=== PATIENT | male | born 1940 | race Caucasian/White ===

== ENCOUNTER → 2017-12-25 07:50 | Outpatient (CLI) | payer MEDICARE, SELFPAY ==
[2017-12-25 08:34] LABS: PSA,Total- Diagnostic 3.42 ng/mL (0.0-4.0)
== END ==
PROVIDERS: Family Provider Internal Medicine; PCP Internal Medicine; Visit Provider Urology
DX: R97.20 Elevated prostate specific antigen [PSA] (principal)
CPT/HCPCS: 36415; 84153

== ENCOUNTER → 2019-02-12 09:15 | Outpatient (CLI) | payer MEDICARE, SELFPAY ==
[2019-02-12 10:36] LABS: PSA,Total - Annual Screen 4.88 ng/mL (0.00-4.00)
== END ==
PROVIDERS: Family Provider Internal Medicine; PCP Internal Medicine; Referring Provider Nurse Practitioner Adult Health; Visit Provider Nurse Practitioner Adult Health
DX: Z12.5 Encounter for screening for malignant neoplasm of prostate (principal)
CPT/HCPCS: 36415; 84153; G0103

== ENCOUNTER → 2019-02-24 09:34 | Outpatient (CLI) | payer MEDICARE, SELFPAY ==
[2017-07-27 09:50] VITALS: BMI 27.7
== END ==
PROVIDERS: Family Provider Internal Medicine; PCP Internal Medicine; Referring Provider Nurse Practitioner Adult Health; Visit Provider Nurse Practitioner Adult Health
DX: N52.9 Male erectile dysfunction, unspecified (principal); R68.82 Decreased libido
CPT/HCPCS: 36415; 84403

== ENCOUNTER → 2019-02-25 08:01 | Outpatient (CLI) | payer MEDICARE, SELFPAY ==
[2017-07-27 09:50] VITALS: BMI 27.7
[2019-02-25 08:34] LABS: Absolute Lymphocyte Count 1.51 X10^3/uL (0.83-4.51); Absolute Neutrophil Count 2.8 X10^3/uL (2.0-7.7); Basophil# 0.02 X10^3/uL; Basophil% 0.4 % (0-1); Eosinophil# 0.16 X10^3/uL; Eosinophils% 3.1 % (0-5); Hematocrit 41.4 % (40-54); Hemoglobin 13.5 g/dL (13.0-16.5); Lymphocyte # 1.51 X10^3/ul (4.0); Lymphocyte % 29.7 % (19-41); Mean Corp Hgb Conc 32.6 g/dL (32-36); Mean Corpuscular Hgb 32.2 pg (27.0-32.0); Mean Corpuscular Volume 98.8 fL (80-94); Mean Platelet Vol. 9.4 fl (6.2-12.0); Monocyte# 0.57 X10^3/uL; Monocyte% 11.2 % (0-10); NRBC Flagged by Analyzer 0 % (0-5); Neutrophil # 2.81 X10^3/uL (2.7-7.7); Neutrophil % 55.4 % (47-70); Platelet Count 139 K/mm3 (150-450); RBC Distribution Width SD 50.8 fl (35.1-43.9); Red Blood Count 4.19 M/mm3 (4.6-6.2); White Blood Count 5.1 K/mm3 (4.4-11.0)
[2019-02-25 09:12] LABS: Luteinizing Hormone 22.5 mIU/mL; Prolactin 12.4 ng/mL
== END ==
PROVIDERS: Family Provider Internal Medicine; PCP Internal Medicine; Referring Provider Nurse Practitioner Adult Health; Visit Provider Nurse Practitioner Adult Health
DX: N52.9 Male erectile dysfunction, unspecified (principal); R97.20 Elevated prostate specific antigen [PSA]; R68.82 Decreased libido
CPT/HCPCS: 36415; 83002; 84146; 84403; 85025

== ENCOUNTER → 2019-04-08 09:37 | Outpatient (CLI) | payer MEDICARE, SELFPAY ==
[2017-07-27 09:50] VITALS: BMI 27.7
== END ==
PROVIDERS: Family Provider Internal Medicine; PCP Internal Medicine; Referring Provider Nurse Practitioner Adult Health; Visit Provider Nurse Practitioner Adult Health
DX: E29.1 Testicular hypofunction (principal)
CPT/HCPCS: 36415; 84403

== ENCOUNTER → 2019-08-25 15:06 | Outpatient (CLI) | payer MEDICARE, SELFPAY | PROVIDERS: PCP Internal Medicine; Referring Provider Urology; Visit Provider Urology | DX: R97.20 Elevated prostate specific antigen [PSA] (principal) | CPT/HCPCS: 36415; 84153; 84403 ==

== ENCOUNTER → 2020-02-29 08:08 | Outpatient (CLI) | payer MEDICARE, SELFPAY ==
[2017-07-27 09:50] VITALS: BMI 27.7
[2020-02-29 09:06] LABS: PSA,Total- Diagnostic 4.11 ng/mL (0.0-4.0)
== END ==
PROVIDERS: PCP Internal Medicine; Referring Provider Urology; Visit Provider Urology
DX: R97.20 Elevated prostate specific antigen [PSA] (principal)
CPT/HCPCS: 36415; 84153; 84403

== ENCOUNTER → 2020-04-20 10:42 | Outpatient (CLI) | payer MEDICARE, SELFPAY ==
--- NOTE | 2020-04-20 10:55 | MRI_ITS ---
STUDY: MRI RIGHT SHOULDER REASON FOR EXAM: Right shoulder pain, injury as a child. TECHNIQUE: Standardized fat and water weighted pulse sequences were obtained in all 3 orthogonal planes. COMPARISON: None. FINDINGS: There is a full-thickness tear of the supraspinatus tendon (T2 coronal images 9-14) retracted approximately 2 cm. There is mild infraspinatus tendinosis (T2 coronal image 6) without discrete tendon tear. There is mild subscapularis tendinosis (T2 axial images 12-14) without discrete tendon tear. Normal teres minor tendon. There is mild atrophy with mild partial fat replacement of the supraspinatus and infraspinatus muscles (T2 sagittal images 18-22). Normal subscapularis muscle. Normal teres minor muscle. Normal glenohumeral articulation. There is a small subchondral cyst in the superior aspect of the glenoid. There is superior migration of the humeral head secondary to the retracted rotator cuff tear. The intracapsular long biceps tendon is poorly visualized and therefore may be torn. Normal labrum. Normal capsulo- ligamentous complex. There is acromioclavicular arthrosis with undersurface osteophytes of the distal clavicle (T2 sagittal images 16, 17). There is a Type II morphology (curved), with a neutral orientation. There is a small volume of subacromial-subdeltoid bursal fluid. Normal visualized coracohumeral and coracoacromial ligaments. Normal deltoid muscle. Normal trapezius muscle. MRI/Upper Ext Joint Only(Routine) IMPRESSION: Full-thickness tear of the supraspinatus tendon. Mild infraspinatus and subscapularis tendinosis. Mild atrophy of the supraspinatus and infraspinatus muscles. Poor visualization of the intracapsular long biceps tendon and therefore may be torn. Acromioclavicular arthrosis. Small volume of subacromial-subdeltoid bursal fluid. Electronically Signed: Jc Gonzalez MD at 12:40 EDT Tel , Service support ,
== END ==
PROVIDERS: PCP Internal Medicine; Referring Provider Orthopaedic Surgery; Visit Provider Orthopaedic Surgery
DX: M19.011 Primary osteoarthritis, right shoulder (principal); M75.121 Complete rotator cuff tear or rupture of right shoulder, not specified as traumatic
CPT/HCPCS: 73221

== ENCOUNTER → 2020-05-11 | Outpatient (CLI) | payer MEDICARE, SELFPAY ==
[2017-07-27 09:50] VITALS: BMI 27.7
[2020-05-11 11:23] LABS: Absolute Lymphocyte Count 1.59 X10^3/uL (0.83-4.51); Absolute Neutrophil Count 2.8 X10^3/uL (2.0-7.7); Basophil# 0.03 X10^3/uL; Basophil% 0.6 % (0-1); Eosinophil# 0.06 X10^3/uL; Eosinophils% 1.2 % (0-5); Hematocrit 46.2 % (40-54); Hemoglobin 14.8 g/dL (13.0-16.5); Lymphocyte # 1.59 X10^3/ul (4.0); Lymphocyte % 31.5 % (19-41); Mean Corpuscular Hgb 31.4 pg (27.0-32.0); Mean Corpuscular Volume 97.9 fL (80-94); Mean Platelet Vol. 9.7 fl (6.2-12.0); Monocyte# 0.57 X10^3/uL; Monocyte% 11.3 % (0-10); NRBC Flagged by Analyzer 0 % (0-5); Neutrophil # 2.79 X10^3/uL (2.7-7.7); Neutrophil % 55.2 % (47-70); Platelet Count 147 K/mm3 (150-450); RBC Distribution Width CV 13.2 % (11.6-14.6); RBC Distribution Width SD 49.2 fl (35.1-43.9); Red Blood Count 4.72 M/mm3 (4.6-6.2); White Blood Count 5.1 K/mm3 (4.4-11.0)
[2020-05-11 11:45] LABS: Anion Gap 4 (5-15); BUN 26 mg/dL (7-18); BUN/Creat Ratio 25.7 RATIO (10-20); Calcium,Total 9.1 mg/dL (8.5-10.1); Chloride 108 mmol/L (98-107); Creatinine, Serum 1.01 mg/dL (0.70-1.30); EST Glomerular Filtration Rate 76 mL/min (>60); Est Glom Filt Rate - Afr Amer 92 mL/min (>60); Glucose 95 mg/dL (74-106); Potassium 4.3 mmol/L (3.5-5.1); Sodium Level 138 mmol/L (136-145)
== END | disposition home or self-care (01) ==
LOC: LAB 11:07
PROVIDERS: Registered Nurse; PCP Internal Medicine; Referring Provider Orthopaedic Surgery; Visit Provider Orthopaedic Surgery
DX: Z01.818 Encounter for other preprocedural examination (principal)
CPT/HCPCS: 36415; 80048; 85025

== ENCOUNTER → 2020-05-23 09:05 | Outpatient (CLI) | payer MEDICARE, SELFPAY | PROVIDERS: PCP Internal Medicine; Referring Provider Registered Nurse; Visit Provider Registered Nurse | DX: Z20.828 Contact with and (suspected) exposure to other viral communicable diseases (principal) | CPT/HCPCS: 87635; C9803; U0003 ==

== ENCOUNTER → 2020-10-05 13:26 | Outpatient (CLI) | payer MEDICARE, SELFPAY ==
--- NOTE | 2020-10-05 13:31 | CT_ITS ---
STUDY: CT BRAIN WITHOUT CONTRAST REASON FOR EXAM: Male, 79 years old. MEMORY IMPAIRMENT RADIATION DOSAGE (If Supplied By Facility): CTDIvol = ( 44.99 ) mGy, DLP = ( 745.49 ) mGycm TECHNIQUE: Transaxial CT imaging of the brain was performed without administration of intravenous contrast material. Individualized dose optimization techniques were used for this CT. COMPARISON: No relevant priors. FINDINGS: Normal soft tissue structures. Normal calvarium. There is mild cerebral atrophy with widening of the extra-axial spaces and ventricular dilatation. There are areas of decreased attenuation within the white matter tracts of the supratentorial brain, consistent with microvascular disease changes. Tiny old lacunar infarcts in the insular cortex of the left temporal lobe. Normal brainstem. There is mild cerebellar atrophy. There is no intracranial hemorrhage. There are no findings of an acute ischemic infarction. Normal visualized paranasal sinuses. CT/Brain/Head without Contrast IMPRESSION: Chronic involutional changes of the brain. Electronically Signed: Brent Perales MD at 15:14 EST , Service support ,
== END ==
PROVIDERS: PCP Internal Medicine; Referring Provider Internal Medicine; Visit Provider Internal Medicine
DX: R41.3 Other amnesia (principal)
CPT/HCPCS: 70450

== ENCOUNTER → 2021-04-07 07:47 | Outpatient (CLI) | payer MEDICARE, SELFPAY ==
--- NOTE | 2021-04-07 08:03 | MRI_ITS ---
EXAM: MR HEAD WITHOUT AND WITH INTRAVENOUS CONTRAST : 1940 CLINICAL INDICATION: ALTERED MENTAL STATUS TECHNIQUE: Multiplanar and multisequence MR images of the brain were obtained without and with intravenous contrast. This report was created using [employer] report generation technology. CONTRAST: None specified COMPARISON: CT brain October 05, 2020 FINDINGS: BRAIN AND EXTRA-AXIAL SPACES: Multiple foci of increased T2 signal intensity within the cerebral white consistent with chronic microvascular disease. No intra- or extra-axial hemorrhage. No evidence of acute infarct. No intracranial mass or mass effect. There is preservation of the bustillos/white matter interface. Posterior fossa structures are unremarkable. Ventricles are appropriate for age. No hydrocephalus. Basal cisterns are patent. SELLA: Unremarkable. Normal sella turcica, pituitary gland, infundibular stalk, optic chiasm and hypothalamus. AUDITORY SYSTEM: Unremarkable. The internal auditory canals are patent. BONES/JOINTS: Unremarkable. No discrete lytic or blastic abnormalities. SINUSES: Unremarkable as visualized. Clear. MASTOID AIR CELLS: Unremarkable as visualized. Clear. ORBITS: Unremarkable as visualized. Both globes, extraocular muscles, optic nerves and retrobulbar fat appear unremarkable. VASCULATURE: Unremarkable as visualized. Normal flow voids in the major intracranial circulation. MRI/Brain W/WO Contrast IMPRESSION: 1. No acute intracranial abnormality. 2. White matter changes suggestive of chronic microvascular disease. at 0950 Reported and signed by: Elliot Carvajal MD Electronically Signed: Elliot Carvajal MD at 9:48 EDT Tel , Service support ,
[2021-04-08 07:07] LABS: EGFR FINGERSTICK > 60 mL/min (>60)
== END ==
PROVIDERS: PCP Internal Medicine
DX: R41.82 Altered mental status, unspecified (principal)
CPT/HCPCS: 70553; A9575

== ENCOUNTER → 2021-04-19 08:29 | Outpatient (CLI) | payer MEDICARE, SELFPAY ==
[2021-04-19 09:49] LABS: PSA,Total- Diagnostic 1.59 ng/mL (0.0-4.0)
== END ==
PROVIDERS: PCP Internal Medicine
DX: R97.20 Elevated prostate specific antigen [PSA] (principal)
CPT/HCPCS: 36415; 84153

== ENCOUNTER 2022-02-12 06:37 | Emergency (ER) | payer MEDICARE, SELFPAY ==
[2022-02-12 06:38] VITALS: BP 139/63; BP 163/75; PULSE 64; RESP 16; TEMP 36.7; O2SAT 97; O2SAT 98; BMI 27.6
--- NOTE | 2022-02-12 06:48 | CT_ITS ---
EXAM: CT ABDOMEN AND PELVIS WITHOUT INTRAVENOUS CONTRAST CLINICAL INDICATION: Kidney Stone - R flank pain TECHNIQUE: Helically acquired images were obtained of the abdomen and pelvis without intravenous contrast. This CT exam was performed using one or more of the following dose reduction techniques: automated exposure control, adjustment of the mA and/or kV according to patient size, and/or use of iterative reconstruction technique. This report was created using [employer] report generation technology. RADIATION DOSE: CTDIvol = 6.73 mGy, DLP = 334.77 mGy-cm. COMPARISON: None. FINDINGS: LOWER THORAX: Unremarkable. Lung bases are clear. No cardiomegaly. No significant pericardial effusion. ABDOMEN: LIVER: Unremarkable. Homogeneous. GALLBLADDER AND BILE DUCTS: Unremarkable. No calcified gallstones. No gallbladder distention or wall edema. No intra- or extrahepatic biliary ductal dilation. PANCREAS: Unremarkable. No focal cystic mass. SPLEEN: Unremarkable. Normal size without focal cystic or solid mass. ADRENALS: Unremarkable. No nodules. KIDNEYS AND URETERS: Mild right hydroureteronephrosis due to a 3 mm stone at the distal right ureter. Parapelvic cysts left kidney. No follow-up imaging required. STOMACH AND BOWEL: Unremarkable. No stomach or bowel distention. No focal inflammatory change. PELVIS: APPENDIX: No evidence of acute appendicitis. BLADDER: Unremarkable. REPRODUCTIVE: Prostate is mildly enlarged. ABDOMEN and PELVIS: INTRAPERITONEAL SPACE: Unremarkable. No ascites or other fluid collection. No free air. BONES/JOINTS: Unremarkable. No suspicious lytic or blastic abnormality. SOFT TISSUES: Unremarkable. No discrete abdominal or pelvic wall hernia. VASCULATURE: Unremarkable. Abdominal aorta is non-dilated. LYMPH NODES: Unremarkable. No enlarged lymph nodes. CT/Abdomen/Pelvis without Cont IMPRESSION: 1. Mild right hydroureteronephrosis due to a 3 mm stone at the distal right ureter. 2. Prostate is mildly enlarged. Electronically Signed: Mk Castellano MD at 7:48 EDT ,
--- NOTE | 2022-02-12 06:49 | EDS_ITS ---
HPI HPI - GI History of Present Illness Chief Complaint: Flank Pain Informant: patient Abdominal Pain/Flank Pain Onset: Hours (4) Context: Sudden Onset Timing: Continuous and Waxes and wanes Quality: Aching Location: Right Flank (Mostly in low back) Current Severity: Severe Maximum Severity: Severe Worsened by: Nothing Relieved by: Nothing Nausea/Vomiting/Emesis GI Symptom: Positive for Nausea; Negative for Vomiting Diarrhea/Melena/Hematochezia GI Symptom: Negative for Diarrhea, Melena or Hematochezia Associated Symptoms Associated Symptoms: Negative for Dysuria, Frequency, Hematuria or Urgency Narrative Narrative: Patient with sudden onset of pain in his right low back overnight associated with nausea, no urinary symptoms or vomiting or abdominal pain. No systemic symptoms, no syncope, takes no anticoagulants. Never had this before. Denies doing anything yesterday that could account for muscular low back pain. Prior similar symptoms: No Recent Illness/Hospitalization: No PFSH PFS Medical History HTN (hypertension) Home Medications ibuprofen 100 mg tablet (Advil) PO 07/27/17 [History Last Taken Unknown] lisinopril 5 mg tablet 10 mg PO QDAY 07/27/17 [History Last Taken Unknown] hydrocodone-acetaminophen 5-325mg 5mg-325mg 1 - 2 tab PO Q6H PRN PRN Pain 3 days #20 TABLETS 02/12/22 [Rx Last Taken Unknown] ondansetron 4 mg disintegrating tablet 8 mg PO Q8H PRN PRN Nausea #20 tabs 02/12/22 [Rx Last Taken Unknown] Allergy/AdvReac Type Severity Reaction Status Date / Time Penicillins [PCN] Allergy Unknown Verified 04/26/20 07:11 Surgical History (Updated 02/12/22 @ 06:45 by Almaz Vela) History of appendectomy Social History Smoking Status: Never smoker alcohol intake: never ROS ROS ED Constitutional Constitutional ED: Denies chills or fever(s) Eyes Eyes: Denies change in vision or diplopia ENT ENT ED: Denies rhinorrhea or sore throat Cardiovascular Cardiovascular: Denies chest pain or palpitations Respiratory/Chest Respiratory/Chest: Denies cough or dyspnea Gastrointestinal Gastrointestinal: Reports nausea; Denies abdominal pain, diarrhea or vomiting Genitourinary Genitourinary ED: Reports flank pain; Denies dysuria or hematuria Musculoskeletal Musculoskeletal: Reports back pain; Denies neck pain Integumentary Denies abscess or rash Neurologic Neurologic: Denies headache(s), paresthesias or weakness Psychiatric Psychiatric: Denies anxiety or suicidal thoughts EXAM Physical Exam Const Vital Signs: 02/12/22 06:38 02/12/22 06:38 02/12/22 08:09 Temperature 98.1 F Temperature Source Oral Pulse Rate 64 64 67 Respiratory Rate 16 16 16 Blood Pressure 163/75 H 139/63 H 165/77 H Blood Pressure Mean 104 88 106 Pulse Ox 97 98 96 Oxygen Delivery Method Room Air Room Air Room Air Positive well nourished and well developed General Appearance ED: well developed and NAD HEENT Reports moist mucous membranes normocephalic and atraumatic Eyes PERRL and EOMs intact bilaterally Neck full ROM and supple Resp normal respiratory effort and clear to auscultation bilaterally Cardio regular rate, regular rhythm and no murmurs GI non-tender and non-distended Auscultation: normoactive bowel sounds Palpation: soft Back/Spine General Back: CVA tenderness right and other FROM Extremity normal to inspection General Extremety ED: Negative for edema, pulses abnormal or tenderness General Extremity: Negative for edema or pulses abnormal Neuro oriented x3, CN's II-XII intact bilaterally and no sensory deficits noted Sensorium / Orientation: awake and alert Motor Exam: strength 5/5 throughout Skin no rashes or lesions noted and no wounds MDM MDM MDM Narrative Medical decision making narrative: CT confirms a stone in the right ureter, distal, 3 mm. High likelihood he will pass this on his own, expectant management is indicated. After morphine and Zofran he is feeling much better. Urine shows no signs of infection. I do not think we need blood work right now emergently. He will be given prescriptions for symptom control, filters to go home with, and we discussed reasons to return he is comfortable with that plan. Given his age and the likelihood he will pass this stone on his own, as well as the risk of first of syncope being higher in this age group, I am not putting him on Flomax at this time since I think the risks outweigh the potential sera efits. Lab Data Attestation: I reviewed the patient's lab results. Labs: Laboratory Results - last 24 hr 02/12/22 07:15 Urine Color Yellow Urine Clarity Clear Urine pH 6.0 Ur Specific [place] 1.025 Urine Protein 15 H Urine Glucose (UA) Normal Urine Ketones Negative Urine Occult Blood Negative Urine Nitrite Negative Urine Bilirubin Negative Urine Urobilinogen Normal Ur Leukocyte Esterase Negative Urine RBC 0 SEEN Urine WBC 0 SEEN Ur Squamous Epith Cells 0 SEEN Urine Bacteria 0 SEEN Urine Mucus 0 SEEN Radiography Diagnostic Testing: Clinical Impression(s) from Imaging Studies Abdomen/Pelvis CT 02/12/22 06:48 IMPRESSION: 1. Mild right hydroureteronephrosis due to a 3 mm stone at the distal right ureter. 2. Prostate is mildly enlarged. Electronically Signed: Mk Castellano MD at 7:48 EDT , Discharge Plan Triage Chief Complaint: Flank Pain ED Provider: Qasim Morales Dx/Rx/DC Orders Clinical Impression: Renal colic on right side, Ureterolithiasis Instructions: ED Kidney Stone w/ Colic Prescriptions: New hydrocodone-acetaminophen [hydrocodone-acetaminophen] 1 TABLET tablet 1 - 2 tab PO Q6H PRN PRN (Reason: Pain) 3 Days Qty: 20 0RF ondansetron [ondansetron] 4 MG tablet 8 mg PO Q8H PRN PRN (Reason: Nausea) Qty: 20 0RF No Action ibuprofen 100 mg tablet 100 mg tablet PO lisinopril 5 mg tablet 10 mg PO QDAY Primary Care Provider: Fannie Leyva Referrals: Amilcar Del Toro MD [STAFF PHYSICIAN] - (1-2 weeks if persistent symptoms) Fannie Leyva DO [Primary Care Provider] - Disposition Disposition: Home, Self Care
[2022-02-12] MEDS: Ondansetron 4 MG/2 ML Vial IV (07:12)
[2022-02-12] MEDS: Morphine 2 MG/ML Syringe IV (07:13)
[2022-02-12 07:19] LABS: Bacteria 0 SEEN /hpf (None Seen); Mucous, Urine 0 SEEN /hpf (<or=2+); Red Blood Cells-Urine 0 SEEN /hpf (0-5); Squamous Epithelial Cells - UA 0 SEEN /hpf (0-5); White Blood Cells 0 SEEN /hpf (0-5)
[2022-02-12 07:31] LABS: Color, Urine Yellow (Yellow); Glucose, Dipstick Normal (Normal); Ketone-Dipstick Negative (Negative); Leukocyte Esterase-Dipstick Negative /ul (Negative); Nitrite-Dipstick Negative (Negative); Occult Blood-Urine Negative /ul (Negative); Protein-Dipstick 15 mg/dl (Negative); Specific Gravity, Urine 1.025 (1.002-1.030); Urine Bilirubin Dipstick Negative (Negative); Urine Clarity Clear (Clear); Urine Urobilinogen Normal (Normal)
[2022-02-12 08:09] VITALS: BP 165/77; PULSE 67; RESP 16; O2SAT 96
== END 2022-02-12 09:01 | disposition home or self-care (01) ==
PROVIDERS: Emergency Provider Emergency Medicine; PCP Internal Medicine; Visit Provider Emergency Medicine
DX: N13.2 Hydronephrosis with renal and ureteral calculous obstruction (principal); I10 Essential (primary) hypertension; Z79.899 Other long term (current) drug therapy
CPT/HCPCS: 74176; 81001; 96374; 96375; 99283; A4216; J2405

== ENCOUNTER → 2022-02-15 | Outpatient (CLI) | payer MEDICARE, SELFPAY ==
[2022-03-02 11:45] LABS: Size 4x3 mm; Source Not Provided
== END | disposition home or self-care (01) ==
LOC: LABSPEC 12:11
PROVIDERS: PCP Internal Medicine; Referring Provider Urology; Visit Provider Urology
DX: N20.0 Calculus of kidney (principal)
CPT/HCPCS: 82360

== ENCOUNTER → 2022-03-20 | Outpatient (CLI) | payer MEDICARE, SELFPAY ==
[2022-03-20 10:22] LABS: PSA,Total - Annual Screen 2.31 ng/mL (0.00-4.00)
== END | disposition home or self-care (01) ==
LOC: LAB 09:28
PROVIDERS: PCP Internal Medicine; Referring Provider Urology; Visit Provider Urology
DX: Z12.5 Encounter for screening for malignant neoplasm of prostate (principal)
CPT/HCPCS: 36415; 84153; G0103

== ENCOUNTER → 2023-03-25 | Outpatient (CLI) | payer MEDICARE, SELFPAY ==
[2023-03-25 16:35] LABS: PSA,Total - Annual Screen 2.43 ng/mL (0.00-4.00)
== END | disposition home or self-care (01) ==
LOC: LAB 15:14
PROVIDERS: PCP Internal Medicine; Visit Provider Nurse Practitioner
DX: Z12.5 Encounter for screening for malignant neoplasm of prostate (principal)
CPT/HCPCS: 36415; 84153; G0103

== ENCOUNTER 2024-04-30 09:30 | Outpatient (RCR) | payer MEDICARE, SELFPAY ==
--- NOTE | 2024-04-02 10:32 | HP.PTEVAL_ITS ---
Patient's Visit Information Visit Information Visit Information: ANDRA KHAN is a 83 year old M referred to Physical Therapy by JULIANNE WilderC with a diagnosis of RIGHT LOW BACK PAIN. Date of Evaluation: 04/02/24 Physical Therapist: Yo Chamberlain, PT, Cert MDT, OCS Visit Plan Frequency: 2x /Week Duration: 4 Weeks Plan: PT INTERVENTIONS DLS ,POSTURAL EX'S ,LE FLEXABILITY .LUMBAR ROM AND M ODALITIES' PRN Subjective Subjective: This 83 y/o male presents to physical therapy with low back pain. Patient injury 2 weeks to right low back picking up bucket out of dehumidifier. Caused sharp keita across back .Patient does have h/o LBP many years. Seen TECHNICAL SUPPORT TECHNICIAN recommended PT and x-rays 2 mm of anterolisthesis of L3 on L2.Endplate concavities compatible with mild osteoporosis. Diffuse moderate lower thoracic and lumbosacral facet . No medication. Patient aggravating factors bending after working all day. Alleviating factors rest. Coughing/sneezing-. Denies paresthesia/tingling -. Patient has no trauma. Patient pain doesn't interfere with working. Pain can aggravate sleeping. Patient seen chiropractor. Patient goals to have no pain. SOCIAL: VOCATION: Construction Pain Right Back: Pain Intensity (Out of 10): 4 Pain Intensity Range: 10 Objective Objective: POSTURE:mild forward posture GAIT: reciprocal pattern NEURO: denies paresthesia/tingling ,reflexes L3-4,L4-L5,L5-S1 1/3 PALAPTION: unremarkable FLEXABILITY: hamstrings mod tight MMT: quads/hams 4/5 ,hip flexion 4/5 ,ankle 4/5 LUMBAR ROM: flexion min loss ,extension min loss ,side glides min loss Special Tests L/S Slump test left side: Negative L/S Slump test right side: Negative L/S Left Straight Leg Raise: Negative L/S Right Straight Leg Raise: Negative Lumbar Standing: Flexion - Mechanical Response: No effect Lumbar Standing: Flexion - Symptoms During Testing: Increases Lumbar Standing: Flexion - Symptoms After Testing: No worse Lumbar Standing: Extension - Mechanical Response: No effect Lumbar Standing: Extension - Symptoms During Testing: No effect Lumbar Standing: Extension - Symptoms After Testing: No effect Lumbar Standing: Right Side Glides - Mechanical Response: No effect Lumbar Standing: Right Side [employer] - Symptoms During Testing: No effect Lumbar Standing: Right Side [employer] - Symptoms After Testing: No effect Lumbar Standing: Left Side [employer] - Mechanical Response: No effect Lumbar Standing: Left Side [employer] - Symptoms During Testing: No effect Lumbar Standing: Left Side [employer] - Symptoms After Testing: No effect Lumbar Lying: Flexion - Mechanical Response: No effect Lumbar Lying: Flexion - Symptoms During Testing: No effect Lumbar Lying: Flexion - Symptoms After Testing: No effect Lumbar Lying: Extension - Mechanical Response: No effect Lumbar Lying: Extension - Symptoms During Testing: No effect Lumbar Lying: Extension - Symptoms After Testing: No effect Balance/Special Test Scores Oswestry Low Back Score: 16 Goals Goal 1:: Patient to be I with HEP for back Goal Time Frame: 4-6 Weeks Goal 2:: Patient to demonstrate 50% improvement with decrease pain and improved function Goal Time Frame: 4-6 Weeks Goal 3:: Patient to improve lumbar ROM for function of recovery for ADLS and work Goal Time Frame: 4-6 Weeks Goal 4:: Patient improve back oswestry score by 5 points to improve function. Goal Time Frame: 4-6 Weeks Rehabilitation Potential Physical Therapy Diagnosis: This patient has right low back pain with DDD mild osteoporosis with pain with positioning and motion testing thus benefit from skilled PT Rehabilitation Potential: Good Anticipated Interventions Patient/Client Instruction: Educate patient on: Condition and Plan of Care For the Purpose of:: To decrease pain, To increase ROM, To improve muscle performance and motor function, To increase tolerance to activity/condition/position, To improve ability of physical actions for home/community/work/leisure, To improve health of tissue, To decrease soft tissue restriction, To increase flexibility/ROM, To reduce risk of recurrence, To prevent re-injury and To improve tolerance to ADL's Therapeutic Exercise to Include: Strength training, Postural training, Flexibilty training and Dynamic Lumbar Stabilization For the Purpose of:: To decrease pain, To increase ROM, To improve muscle performance and motor function, To increase tolerance to activity/condition/position, To improve ability of physical actions for home/community/work/leisure, To improve health of tissue, To increase flexibility/ROM, To improve balance and To reduce risk of recurrence TENS: Yes IF ES: Yes Cryotherapy (ice pack, ice massage): Yes Thermo therapy (hot pack): Yes Ultrasound (thermal/non thermal): Yes For the Purpose of:: To decrease pain, To increase ROM, To improve nutrient delivery to tissue, To increase oxygenation perfusion, To improve health of tissue and To decrease soft tissue restriction Text: Thank you for the opportunity to evaluate your patient. For Medicare and Medicare HMO plans, please review the plan of care and approve it. It will need to be FAXED BACK to us at [phone] for Medicare purposes. For Medicare only, by signing this I certify the plan of care. Please let me know if there are questions or concerns regarding this plan of care. Physician Signature: Date:
--- NOTE | 2024-04-30 09:54 | HP.PTDCSUM ---
Discharge Summary D/C summary: It has been my pleasure to treat ANDRA KHAN referred by Andie Culver NP-C, with the diagnosis of RIGHT LOW BACK PAIN for a total of 6 visit(s). Discharge Date: 04/30/24 Please see the following information for a summary of their discharge status. Subjective Subjective: Doing great no pain Pain Right Back: Pain Intensity (Out of 10): 0 Overall Improvement % Improvement: 99 Objective Objective/Function: POSTURE:mild forward posture GAIT: reciprocal pattern NEURO: denies paresthesia/tingling ,reflexes L3-4,L4-L5,L5-S1 1/3 PALAPTION: unremarkable FLEXABILITY: hamstrings mod tight MMT: quads/hams 4/5 ,hip flexion 4/5 ,ankle 4/5 LUMBAR ROM: flexion min loss ,extension min loss ,side glides min loss Goals Goal 1:: Patient to be I with HEP for back Goal Progress: Goal Met Goal 2:: Patient to demonstrate 50% improvement with decrease pain and improved function Goal Progress: Goal Met Goal 3:: Patient to improve lumbar ROM for function of recovery for ADLS and work Goal Progress: Goal Met Goal 4:: Patient improve back oswestry score by 5 points to improve function. Goal Progress: Goal Met Plan Plan: D/C TO HEP D/C Information Discharge Comments: HEP d/c sentence: If there are questions or concerns regarding this patient's physical therapy, please feel free to call me at [phone]. Thank you for the referral of this patient. Sincerely, Yo Chamberlain, PT, Cert MDT, OCS Balance/Gait/Functional tests Balance/Special Test Scores Oswestry Low Back Score: 0 Improvement % Improvement: 99
== END 2024-04-30 14:18 | disposition home or self-care (01) ==
LOC: PT 09:30
PROVIDERS: PCP Internal Medicine; Referring Provider Nurse Practitioner Family; Visit Provider Nurse Practitioner Family
DX: M54.50 Low back pain, unspecified (principal)
CPT/HCPCS: 97110; 97162; 97530

== ENCOUNTER → 2024-05-08 | Outpatient (CLI) | payer MEDICARE, SELFPAY ==
--- NOTE | 2024-05-08 07:54 | CDU_ITS ---
Reason For Study: Carotid Artery Atherosclerosis Rt. Velocities/BP Lt. Velocities/BP Prox CCA 77.6/21.5 cm/sec. Prox CCA 89.1/20.4 cm/sec. Mid CCA 100.1/23.3 cm/sec. Mid CCA 100.2/26.5 cm/sec. Dist CCA 113.3/25.5 cm/sec. Dist CCA 89.1/22.8 cm/sec. Prox ICA 75.0/15.4 cm/sec. Prox ICA 84.2/19.2 cm/sec. Mid ICA 52.0/15.1 cm/sec. Mid ICA 63.8/23.1 cm/sec. Dist ICA 78.7/27.0 cm/sec. Dist ICA 50.4/14.0 cm/sec. Rt. ICA/CCA = 0.8. Lt. ICA/CCA = 0.8. Prox ECA 80.5/7.9 cm/sec. Prox ECA 82.0/10.3 cm/sec. Rt. Vert. 62.2/18.2 cm/sec. Lt. Vert. 39.8/12.7 cm/sec. Right Extracranial There is intimal thickening but no significant atherosclerotic plaque noted in the right common carotid artery. There is heterogeneous, irregular atherosclerotic plaque noted in the right internal carotid artery. There is heterogeneous, irregular atherosclerotic plaque noted in the right external carotid artery. Antegrade flow is noted in the right vertebral artery. Left Extracranial There is homogeneous, smooth atherosclerotic plaque noted in the left common carotid artery. There is heterogeneous, irregular atherosclerotic plaque noted in the left internal carotid artery. There is intimal thickening but no significant atherosclerotic plaque noted in the left external carotid artery. Antegrade flow is noted in the left vertebral artery. Procedure Carotid Duplex 95087. This is a Carotid Duplex examination using B-mode, color flow and specral Doppler. The exam was diagnostic. Exam performed in department. VL/Carotid Duplex Ultrasound Interpretation Summary Mild (<50%) stenosis right extracranial internal carotid. Mild (<50%) stenosis left extracranial internal carotid. Flow within the vertebral arteries is antegrade bilaterally. Ordering Physician: Fannie Leyva Referring Physician: Fannie Leyva Performed By: Vish Juares RVT
== END | disposition home or self-care (01) ==
LOC: CVS 07:54
PROVIDERS: PCP Internal Medicine; Referring Provider Internal Medicine; Visit Provider Internal Medicine
DX: I65.23 Occlusion and stenosis of bilateral carotid arteries (principal)
CPT/HCPCS: 93880; Q9957; A4216

== ENCOUNTER → 2025-03-25 | Outpatient (CLI) | payer MEDICARE, SELFPAY ==
--- NOTE | 2025-03-25 10:51 | VDLE_ITS ---
Reason For Study Reason For Study: Pain RIGHT LEFT CFV is compressible, spontaneous, phasic, competent GSV is normal. and demonstrates normal augmentation. CFV is compressible, spontaneous, phasic, competent, Procedure and demonstrates normal augmentation. This is a venous duplex using B-mode, color flow and FV is compressible, spontaneous, phasic, competent spectral Doppler. and demonstrates normal augmentation. Exam performed in department. POP V is compressible, spontaneous, phasic, competent A preliminary report was called and/or faxed to and demonstrates normal augmentation. Fannie Leyva DO. T/P Trunk is compressible. PTV is compressible. LT PerV is compressible. VL/Venous Duplex US, Unilateral Interpretation Summary Deep veins of the left lower extremity are patent and compressible segmentally. There is no evidence of left lower extremity deep vein thrombosis. Valvular competence appears intact within the p roximal deep venous system on the left . The left great saphenous vein appears patent and compressible segmentally. The right common femoral vein is patent and compressible . Ordering Physician: Fannie Leyva Referring Physician: Fannie Leyva Performed By: Meg Cobian RVT
== END | disposition home or self-care (01) ==
LOC: CVS 10:44
PROVIDERS: PCP Internal Medicine; Referring Provider Internal Medicine; Visit Provider Internal Medicine
DX: M79.662 Pain in left lower leg (principal)
CPT/HCPCS: 93971